=== PATIENT | female | born 1975 | race Caucasian/White ===

== ENCOUNTER 2022-03-30 13:10 | Outpatient (CLI) | payer BC, SELFPAY ==
--- NOTE | ~2022-03-30 | XR_ITS ---
XR chest 2V DATE: 03/30/2022 13:39 INDICATION: Active uveitis. Smoker. Anxiety. TECHNIQUE: PA and lateral views COMPARISON: None FINDINGS: Mild bilateral hyperinflation. No pulmonary infiltrate or consolidation. Mild bilateral api sally capping. No hilar or mediastinal enlargement. Normal heart size. No pleural effusion or pulmonary vascular congestion or pneumothorax. Osteopenia. No suspicious osteolytic or osteoblastic lesions. IMPRESSION: Mild bilateral hyperinflation; no active cardiopulmonary disease Reviewed, dictated and finalized at location A. [facility]
== END 2022-03-30 13:11 | disposition home or self-care (01) ==
LOC: ANHIMG 13:22
PROVIDERS: PCP Physician Assistant
DX: H20.00 Unspecified acute and subacute iridocyclitis (principal); R91.8 Other nonspecific abnormal finding of lung field
CPT/HCPCS: 71046